=== PATIENT | female | born 1960 | race Caucasian/White ===

== ENCOUNTER → 2018-02-12 | Day surgery (SDC) | payer BC ==
[2018-02-06 14:42] VITALS: BMI 25.8
[~2018-02-12] MED LIST: LIDOCAINE HCL/PF 2% SDV 5ML VIAL ONE; PROPOFOL 20 ML ONE
[2018-02-12 10:09] VITALS: TEMP 98.3
[2018-02-12 10:46] VITALS: PULSE 56
[2018-02-12 10:50] VITALS: BP 165/77
== END | disposition home or self-care (01) ==
LOC: FASU-ENDO 08:30
PROVIDERS: ATTEND Internal Medicine Gastroenterology
PROC: 0DJD8ZZ Inspection of Lower Intestinal Tract, Via Natural or Artificial Opening Endoscopic (ICD-10-PCS; principal; 2018-02-12 09:38)
DX: Z86.010 Personal history of colon polyps (principal); Z80.0 Family history of malignant neoplasm of digestive organs

== ENCOUNTER 2020-03-26 10:02 | Emergency (ER) | payer BC | END 2020-03-26 10:36 | disposition home or self-care (01) | LOC: JVIRT 10:02 | DX: Z03.818 Encounter for observation for suspected exposure to other biological agents ruled out (principal) | CPT/HCPCS: C9803; G2012-GT; U0003 ==

== ENCOUNTER 2023-07-31 07:45 | Day surgery (SDC) | payer BC ==
[2023-07-24 15:55] VITALS: BMI 24.0
[2023-07-31 08:03] VITALS: TEMP 98
[2023-07-31 09:28] VITALS: RESP 18
[2023-07-31 09:53] VITALS: BP 102/61; PULSE 61
== END 2023-07-31 09:55 | disposition home or self-care (01) ==
LOC: FASU-ENDO 07:45
PROVIDERS: ATTEND Internal Medicine Gastroenterology
PROC: 0DBN8ZX Excision of Sigmoid Colon, Via Natural or Artificial Opening Endoscopic, Diagnostic (ICD-10-PCS; 2023-07-31)
PROC: 0DBH8ZX Excision of Cecum, Via Natural or Artificial Opening Endoscopic, Diagnostic (ICD-10-PCS; 2023-07-31)
PROC: 0DBK8ZX Excision of Ascending Colon, Via Natural or Artificial Opening Endoscopic, Diagnostic (ICD-10-PCS; principal; 2023-07-31 08:57)
DX: Z12.11 Encounter for screening for malignant neoplasm of colon (principal); D12.3 Benign neoplasm of transverse colon; D12.5 Benign neoplasm of sigmoid colon; K63.5 Polyp of colon; Z86.010 Personal history of colon polyps; Z80.0 Family history of malignant neoplasm of digestive organs; K64.4 Residual hemorrhoidal skin tags
CPT/HCPCS: 88305-TC